=== PATIENT | female | born 1940 ===

== ENCOUNTER 2018-01-08 12:16 | Observation (INO) | payer OTHER ==
--- NOTE | 2018-01-08 13:48 | C.PDOC ---
History Of Present Illness 77 y/o female brought to ER by BLS for right hip pain which began after she fell and was not able to get up at home. Pt says she had to "drag herself to the door." She states, " something is broken because she feels something moving. " Time Seen by Provider: 01/08/18 13:01 Chief Complaint (Nursing): Lower Extremity Problem/Injury History Per: Patient History/Exam Limitations: no limitations Onset/Duration Of Symptoms: Hrs Current Symptoms Are (Timing): Still Present Severity: Moderate - Hip Description Of Injury: Fell Past Medical History Reviewed: Historical Data, Nursing Documentation, Vital Signs Vital Signs: Last Vital Signs Temp 98.4 F 01/08/18 18:00 Pulse 65 01/08/18 18:00 Resp 20 01/08/18 18:00 BP 145/82 01/08/18 18:00 Pulse Ox 97 01/08/18 18:00 - Medical History PMH: Anxiety, Arthritis, Asthma, HTN, Hypercholesterolemia, Osteoporosis, Rheumatoid Arthritis Denies: CVA Other Surgeries: Hx of surgeries - [facility] Procedures CLOSURE SKIN & SUBCUTANEOUS NEC (05/03/14) RESECTION OF APPENDIX, PERCUTANEOUS ENDOSCOPIC APPROACH (06/20/16) TETANUS TOXOID ADMINIST (05/03/14) Family History: States: No Known Family Hx - Social History Hx Tobacco Use: Yes Hx Alcohol Use: No Hx Substance Use: No - Immunization History Hx Tetanus Toxoid Vaccination: No Hx Influenza Vaccination: Yes Hx Pneumococcal Vaccination: No Review Of Systems Constitutional: Negative for: Fever, Chills Musculoskeletal: Positive for: Other (right hip pain) Neurological: Negative for: Weakness, Numbness Physical Exam - Physical Exam Appears: Non-toxic, Other (frail eldely lady screaming in pain) Skin: Warm, Dry Head: Atraumatic, Normacephalic Eye(s): bilateral: Normal Inspection Nose: Flaring Neck: No Midline Cervical Tenderness, Supple Chest: Symmetrical Cardiovascular: No Rhythm Irregular, No Murmur Respiratory: No Decreased Breath Sounds, No Accessory Muscle Use, No Rales, No Rhonchi, No Wheezing Gastrointestinal/Abdominal: Soft, No Tenderness Extremity: No Normal ROM (right hip), Tenderness, Other (slightly rotated external right lower extremity, mild abrasion in right groin area, decreased rom at right hip, lle from ) Pulses: Right Dorsalis Pedis: Decreased (+1 ) Neurological/Psych: Oriented x3, Normal Speech, Normal Cognition, Normal Motor, Normal Sensation ED Course And Treatment - Laboratory Results Result Diagrams: 01/08/18 13:44 01/08/18 13:44 O2 Sat by Pulse Oximetry: 97 (RA) Pulse Ox Interpretation: Normal Progress Note: Labs and UA ordered. Medical Decision Making Medical Decision Making: pt with hip/groin pain s/p fall; pelvic fx on xray, as well as pt has uti. unable to ambulate. discussed with pt's pmd, Dr Rojas, she doesn't admit here. Discussed with Dr Arlette Godwin, admitted to his service. Disposition Discussed With Dr.: Corey Godwin Doctor Will See Patient In The: Hospital - Disposition Disposition: HOSPITALIZED Disposition Time: 14:54 Condition: STABLE - Clinical Impression Clinical Impression: Pelvic ring fracture, UTI (urinary tract infection) - PA / WEB MARKETING ASSISTANT / Resident Statement MD/DO has reviewed & agrees with the documentation as recorded. - Scribe Statement The provider has reviewed the documentation as recorded by the Benjie Akers Provider Attestation All medical record entries made by the Benjie were at my direction and personally dictated by me. I have reviewed the chart and agree that the record accurately reflects my personal performance of the history, physical exam, medical decision making, and the department course for this patient. I have also personally directed, reviewed, and agree with the discharge instructions and disposition.
[2018-01-08 13:50] LABS: BASO # 0.1 K/uL (0.0-0.2); BASO % 0.5 % (0.0-2.0); EOS # 0.1 K/uL (0.0-0.7); EOS % 0.8 % (0.0-4.0); HEMOGLOBIN 13.3 g/dL (11.0-16.0); LYMPH % 13.2 % (20.0-40.0); MEAN CORPUSCULAR HEMOGLOBIN 28.9 pg (27.0-31.0); MEAN CORPUSCULAR HGB CONC 33.7 g/dL (33.0-37.0); MEAN PLATELET VOLUME 7.2 fL (7.2-11.7); MONO # 0.8 K/uL (0.0-0.8); MONO % 4.9 % (0.0-10.0); NEUT # 12.5 K/uL (1.8-7.0); NEUT % 80.6 % (50.0-75.0); RBC 4.62 Mil/uL (3.80-5.20); RED CELL DISTRIBUTION WIDTH 15.1 % (11.5-14.5)
[2018-01-08 13:52] LABS: MEAN CELL VOLUME 85.6 fL (81.0-99.0); WHITE BLOOD COUNT 15.5 K/uL (4.8-10.8)
[2018-01-08 14:03] LABS: ALBUMIN 4.1 g/dL (3.5-5.0); CALCIUM 9.5 mg/dl (8.6-10.4); GFR AFRICAN-AMERICAN > 60; GFR NON-AFRICAN AMERICAN > 60
[2018-01-08 14:04] LABS: ALT/SGPT 25 U/L (9-52); AST/SGOT 26 U/L (14-36); BLOOD UREA NITROGEN 15 mg/dL (7-17)
[2018-01-08 14:12] LABS: SQUAMOUS EPITHIAL 2 /hpf (0-5); URINE BACTERIA RARE (<OCC); URINE BILIRUBIN NEGATIVE (NEGATIVE); URINE BLOOD NEGATIVE (NEGATIVE); URINE CLARITY Hazy (Clear); URINE COLOR Yellow (YELLOW); URINE GLUCOSE (UA) NORMAL (Normal); URINE LEUKOCYTE ESTERASE 3+ Leu/uL (Negative); URINE PROTEIN NEGATIVE (NEGATIVE); URINE UROBILINOGEN NORMAL mg/dL (0.2-1.0)
--- NOTE | 2018-01-08 14:28 | RAD ---
PROCEDURE: Pelvis right hip HISTORY: fall, hip and groin pain COMPARISON: None TECHNIQUE: Standard protocol for this study/examination. FINDINGS: Pelvic ring fracture, right. Comminuted fracture of the pubis. The ischial component is poorly visualized. Degenerative changes both hips without evidence of subluxation, dislocation or protrusio. IMPRESSION: Acute right pelvic ring fracture.
[2018-01-08] MEDS ORDERED: Ciprofloxacin 400mg/200ml D5W 400 MG/200 ML BAG IVPB STA (14:32)
[2018-01-08] MEDS ORDERED: Ciprofloxacin 400mg/200ml D5W 400 MG/200 ML BAG IVPB ONE (15:52)
[2018-01-08] MEDS ORDERED: Sodium Chloride 0.9% 1,000 ML ONE (16:12)
[2018-01-08] MEDS ORDERED: Oxycodone/Acetaminophen 5/325 mg Tab PO PRN (16:16)
[2018-01-08] MEDS: Sodium Chloride 0.9% 1,000 ML IV SCH (16:17)
[2018-01-08] MEDS ORDERED: Sodium Chloride 0.9% 1,000 ML IV SCH (16:30)
[2018-01-08 18:01] VITALS: RESP 20
[2018-01-08] MEDS ORDERED: Albuterol-Ipratrop 3 mg / 0.5 (3 ml) UD INH PRN (18:10)
--- NOTE | 2018-01-08 18:51 | CP.PCM.HP ---
History of Present Illness - History of Present Illness History of Present Illness: PGY1 H+P for Dr. Corey Godwin Patient is a 77 year old female with a past medical history of depression, HTN, Rheumatoid Arthritis, COPD, anxiety, dyslipidemia, osteoporosis, gastritis, hx of migraines and hx of abnormal pap. Patient is presenting to the hospital with a chief complaint of right hip pain. The patient states she was sleeping in her bed when she got a phone call. When she attempted to get up from the bed, she got tangled in the sheets and fell to the ground on her hard wood floor. She reports landing on her hip. She was unable to stand up due to pain. "Something is broken because I feel it moving." She had to pull herself to the door and call her friend who called the ambulance. Patient denies any prodrome prior to the fall, lightheadedness, blurry vision, double vision, weakness or paralysis. She denies hitting her head or LOC. Patient reports feeling in good health with no complaints from her baseline prior to the fall. She states she currently has a headache but it is due to her hx of migraines. Patient reports frequent urination with a burning sensation for an unknown duration. Denies fever, chills , nausea, vomiting, chest pain, abdominal pain, blurry vision, double vision, shortness of breath, cough, numbness or tingling. PMD: Dr. Olivo PMH: depression, HTN, Rheumatoid Arthritis, COPD, anxiety, dyslipidemia, osteoporosis, gastritis, hx of migraines and hx of abnormal pap PSH: Appendectomy, unspecified vaginal surgery (hysterectomy?) Family: multiple family members with unknown, various types of cancer Social: Current half a pack smoker ("my whole life"), denies alcohol/illicit drug use Allergies: Penicillins Meds: Fosamax 70mg qWK Alprazolam 0.5mg PO BID Amlodipine 10mg PO daily Atorvastatin 10mg PO HS Bezesti 2 puffs INH BID Voltaren Gel Nexium Linzess 290mcg PO daily Losartan 100mg PO daily Oxycodone 30mg PO TID prn Prednisone 10mg daily Sertraline 50mg PO daily Temazepam 30mg PO HS prn Pharmacy - - confirmed on 01/08/18 Present on Admission - Present on Admission Any Indicators Present on Admission: No Review of Systems - Review of Systems All systems: reviewed and no additional remarkable complaints except (as per HPI ) Past Patient History - Past Medical History & Family History Past Medical History?: Yes - Past Social History Smoking Status: Current Some Days Smoker - CARDIAC Hx Hypercholesterolemia: Yes Hx Hypertension: Yes - PULMONARY Hx Asthma: Yes - ENDOCRINE/METABOLIC Hx Diabetes Mellitus Type 2: Yes - MUSCULOSKELETAL/RHEUMATOLOGICAL Hx Arthritis: Yes Hx Osteoporosis: Yes Hx Rheumatoid Arthritis: Yes - PSYCHIATRIC Hx Anxiety: Yes Hx Substance Use: No - SURGICAL HISTORY Hx Surgeries: Yes Other/Comment: Left arm. bilateral eye - ANESTHESIA Hx Anesthesia: Yes Hx Anesthesia Reactions: No Meds Allergies/Adverse Reactions: Allergies Allergy/AdvReac Type Severity Reaction Status Date / Time Penicillins Allergy REDNESS Verified 06/19/16 17:36 Physical Exam - Constitutional Appears: In Acute Distress (patient is unable to get comfortable in bed. moments of crying in pain.) - Head Exam Head Exam: ATRAUMATIC, NORMOCEPHALIC - Eye Exam Eye Exam: EOMI. absent: Scleral icterus - ENT Exam ENT Exam: Mucous Membranes Moist - Respiratory Exam Respiratory Exam: Clear to Auscultation Bilateral, NORMAL BREATHING PATTERN. absent: Accessory Muscle Use, Rales, Rhonchi, Wheezes, Respiratory Distress - Cardiovascular Exam Cardiovascular Exam: REGULAR RHYTHM, +S1, +S2. absent: JVD - GI/Abdominal Exam GI & Abdominal Exam: Normal Bowel Sounds, Soft. absent: Distended, Firm, Guarding, Hernia, Tenderness (tender to palpation in RLQ - but believed to be secondary to fx and not actual abdominal pain. soft and NO guarding) - Extremities Exam Extremities exam: Positive for: normal capillary refill, pedal pulses present. Negative for: calf tenderness, full ROM, pedal edema Additional comments: Patient is unwilling to move right LE. Right LE appears externally rotated compared to left LE. UE - hands show severe ulnar deviation of all digits b/l. - Back Exam Back exam: absent: CVA tenderness (L), CVA tenderness (R) - Neurological Exam Neurological exam: Alert, CN II-XII Intact, Oriented x3 - Psychiatric Exam Psychiatric exam: Agitated (in pain) - Skin Skin Exam: Dry, Normal Color (no ecchymosis seen), Warm Results - Vital Signs Recent Vital Signs: Last Vital Signs Temp 98.4 F 01/08/18 18:00 Pulse 65 01/08/18 18:00 Resp 20 01/08/18 18:00 BP 145/82 01/08/18 18:00 Pulse Ox 97 01/08/18 18:00 - Labs Result Diagrams: 01/08/18 13:44 01/08/18 13:44 Labs: Laboratory Results - last 24 hr 01/08/18 01/08/18 01/08/18 13:44 13:44 13:44 WBC 15.5 H D RBC 4.62 Hgb 13.3 Hct 39.6 MCV 85.6 D MCH 28.9 MCHC 33.7 RDW 15.1 H Plt Count 249 MPV 7.2 Neut % (Auto) 80.6 H Lymph % (Auto) 13.2 L [place] % (Auto) 4.9 Eos % (Auto) 0.8 Baso % (Auto) 0.5 Neut # (Auto) 12.5 H Lymph # (Auto) 2.0 Newton # (Auto) 0.8 Eos # (Auto) 0.1 Baso # (Auto) 0.1 PT 11.0 INR 1.0 APTT 21 Sodium Potassium Chloride Carbon Dioxide Anion Gap BUN Creatinine Est GFR ( Amer) Est GFR (Non-Af Amer) Random Glucose Calcium Total Bilirubin AST ALT Alkaline Phosphatase Total Creatine Kinase Total Protein Albumin Globulin Albumin/Globulin Ratio Urine Color Yellow Urine Clarity Hazy Urine pH 7.0 Ur Specific [place] 1.010 Urine Protein Negative Urine Glucose (UA) Normal Urine Ketones Negative Urine Blood Negative Urine Nitrate Positive H Urine Bilirubin Negative Urine Urobilinogen Normal Ur Leukocyte Esterase 3+ H Urine WBC (Auto) 110 H Urine RBC (Auto) 2 Ur Squamous Epith Cells 2 Urine Bacteria Rare 01/08/18 13:44 WBC RBC Hgb Hct MCV MCH MCHC RDW Plt Count MPV Neut % (Auto) Lymph % (Auto) [place] % (Auto) Eos % (Auto) Baso % (Auto) Neut # (Auto) Lymph # (Auto) [place] # (Auto) Eos # (Auto) Baso # (Auto) PT INR APTT Sodium 139 Potassium 4.4 Chloride 104 Carbon Dioxide 22 Anion Gap 17 BUN 15 Creatinine 0.6 L Est GFR ( Amer) > 60 Est GFR (Non-Af Amer) > 60 Random Glucose 92 Calcium 9.5 Total Bilirubin 1.1 AST 26 ALT 25 Alkaline Phosphatase 73 Total Creatine Kinase 120 Total Protein 8.4 H Albumin 4.1 Globulin 4.2 H Albumin/Globulin Ratio 1.0 Urine Color Urine Clarity Urine pH Ur Specific [place] Urine Protein Urine Glucose (UA) Urine Ketones Urine Blood Urine Nitrate Urine Bilirubin Urine Urobilinogen Ur Leukocyte Esterase Urine WBC (Auto) Urine RBC (Auto) Ur Squamous Epith Cells Urine Bacteria Assessment & Plan - Assessment and Plan (Free Text) Plan: Right Pelvic Ring Fx - s/p fall Ortho consult, Dr. Reece - f/u recs Hip/Pelvis X-ray - Acute right pelvic ring fracture Head CT w/o - patient refused. "There is nothing wrong with my head. I had a head CT a couple months ago. I'm fine." Will attempt to again tomorrow. Dilaudid 2mg IVP q8h prn (patient takes oxycodone 30mg PO TID @home for chronic pain 2/2 RA) Colace 100mg PO TID UTI WBC 15.5 (Neut % 80.6) UA 01/08 - Nitrate +, Leuk Marsha 3+ Urine Cx f/u Blood Cx f/u Cipro 400mg IVPB q12h (started on 01/08) Straight Cath q6h prn COPD Spiriva 2 puffs INH BID Duoneb 3mL INH q6h prn for SOB HTN Amlodipine 10mg PO daily Losartan 100mg PO daily Depression/Anxiety Alprazolam 0.5mg PO BID prn Zoloft 50mg PO daily HLD Crestor 5mg PO HS Chronic Constipation Colace 100mg PO TID Prune Juice 8oz with breakfast and dinner Rheumatoid Arthritis Prednisone 10mg daily Calcium Carbonate/Vit D 2 tab PO TID (total Cristian 1500 - Vit D 750 daily) Patient takes Oxycodone 30mg PO TID prn at home for pain - confirmed with pharmacy. On hold as patient is currently getting the hx of Migraines Temazepam 30g PO HS prn Prophylactic Care DVT - anticoag is contraindicated as we are unable to rule out acute brain bleed 2/2 patient's refusal of head CT. SCDs only for now GI - Protonix 40mg IVP q12h Case discussed with Dr. Corey Sarah Reji PGY1
[2018-01-08] MEDS: Ciprofloxacin 400mg/200ml D5W 400 MG/200 ML BAG IVPB SCH (22:18)
[2018-01-08] MEDS ORDERED: HYDROmorphone 0.5 mg/0.5 ml ISec IVP PRN (23:07)
[2018-01-09] MEDS: Sodium Chloride 0.9% 1,000 ML IV SCH ×2 (00:45→05:59)
[2018-01-09 06:26] LABS: BASO % 0.3 % (0.0-2.0); EOS # 0.1 K/uL (0.0-0.7); EOS % 1.1 % (0.0-4.0); HEMOGLOBIN 11.1 g/dL (11.0-16.0); LYMPH # 1.2 K/uL (1.0-4.3); LYMPH % 15.4 % (20.0-40.0); MEAN CELL VOLUME 86.3 fL (81.0-99.0); MEAN CORPUSCULAR HEMOGLOBIN 29.5 pg (27.0-31.0); MEAN CORPUSCULAR HGB CONC 34.2 g/dL (33.0-37.0); MONO # 0.6 K/uL (0.0-0.8); MONO % 7.8 % (0.0-10.0); NEUT # 5.7 K/uL (1.8-7.0); NEUT % 75.4 % (50.0-75.0); NRBC % 0.1 % (0.0-2.0); RBC 3.74 Mil/uL (3.80-5.20); WHITE BLOOD COUNT 7.6 K/uL (4.8-10.8)
[2018-01-09 06:37] LABS: ALB/GLOB RATIO 1.1 (1.0-2.1); ALBUMIN 3.3 g/dL (3.5-5.0); ALT/SGPT 21 U/L (9-52); AST/SGOT 20 U/L (14-36); BLOOD UREA NITROGEN 15 mg/dL (7-17); GFR AFRICAN-AMERICAN > 60; GFR NON-AFRICAN AMERICAN > 60; HDL CHOLESTEROL 69 mg/dL (30-70)
[2018-01-09 06:46] LABS: LDL CHOLESTEROL 106 mg/dL (0-129)
[2018-01-09] MEDS ORDERED: Tiotropium 18 mcg Cap For Inhalation INH SCH (08:00)
[2018-01-09] MEDS: Calcium-Vit D 250 mg-125 Units Tab UD PO SCH ×3 (09:58→17:48)
[2018-01-09] MEDS: Ciprofloxacin 400mg/200ml D5W 400 MG/200 ML BAG IVPB SCH ×2 (09:59→21:17)
[2018-01-09] MEDS ORDERED: POLYETHYLENE GLYCOL 3350 17 GM/Dose PACKET PO STA (11:05)
--- NOTE | 2018-01-09 12:06 | CT ---
PROCEDURE: CT HEAD WITHOUT CONTRAST. HISTORY: S/P fall from bed COMPARISON: 03/13/2016 TECHNIQUE: Axial computed tomography images were obtained through the head/brain without intravenous contrast. Radiation dose: Total exam DLP = 781.23 mGy-cm. This CT exam was performed using one or more of the following dose reduction techniques: Automated exposure control, adjustment of the mA and/or kV according to patient size, and/or use of iterative reconstruction technique. FINDINGS: HEMORRHAGE: No intracranial hemorrhage. BRAIN: No mass effect or edema. Left frontal parafalcine encephalomalacia, likely old infarct. Unchanged from prior. No evidence of acute infarct. VENTRICLES: Unremarkable. No hydrocephalus. CALVARIUM: Unremarkable. PARANASAL SINUSES: Minimal mucoperiosteal thickening in sphenoid sinus and posterior ethmoid sinus consistent with chronic sinusitis. MASTOID AIR CELLS: Unremarkable as visualized. No inflammatory changes. OTHER FINDINGS: None. IMPRESSION: No intracranial mass, hemorrhage or evidence of acute infarct. 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 Minimal chronic paranasal sinusitis.
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
[2018-01-09] MEDS: Enoxaparin 40 mg Syringe SC SCH (13:46)
[2018-01-09] MEDS: oxyCODONE 30 mg Immediate Release Tab PO PRN (20:23)
--- NOTE | 2018-01-09 23:04 | CON ---
DATE: 01/09/2018. CHIEF COMPLAINT: Right pubic rami fracture. HISTORY OF PRESENT ILLNESS: The patient is 77-year-old female with past medical history of depression, hypertension, rheumatoid arthritis, COPD, anxiety, dyslipidemia and osteoporosis. The patient presented to the hospital with a right hip pain. The patient reports she had a mechanical fall while she attempted to answer a phone, fell landing on to her right hip. The patient was brought into emergency room. Hip x-rays showed a right inferior and superior rami fracture. The patient currently reports pain. Denies pain in any other extremities or joint. Denies any lightheadedness. Denies any loss of consciousness. The patient is . PAST MEDICAL HISTORY: Depression, hypertension, rheumatoid arthritis, COPD, anxiety, dyslipidemia, osteoporosis, and gastritis. PAST SURGICAL HISTORY: Appendectomy and possible hysterectomy. ALLERGIES: PENICILLIN. MEDICATIONS: Per patient's chart. PHYSICAL EXAMINATION: MUSCULOSKELETAL: Examination of the patient's right pelvis, no swelling or ecchymosis. No hematoma noted. The patient has limited range of motion to the hip secondary to pain. She has negative log roll. Negative heel strike. Able to dorsiflex her ankle and plantar flex her ankle and extend her toe. Sensation is grossly intact and 2+ pedal pulses. IMAGING: X-rays of the patient's pelvis showing a minimally displaced superior inferior right pubic rami fracture. ASSESSMENT: This is 77-year-old female with mechanical fall and right hip superior and inferior pubic rami fracture. TREATMENT: I had a detailed discussion with the patient including the history, physical exam, and the nature of her injury. At this time, I am recommending nonoperative management. The patient will be weight bearing as tolerated, DVT prophylaxis and pain control. The patient will continue physical therapy and may follow up in my office as outpatient. Zo Reece MD
[2018-01-10 00:11] VITALS: TEMP 98
[2018-01-10 07:21] LABS: BASO % 0.5 % (0.0-2.0); EOS # 0.2 K/uL (0.0-0.7); HEMOGLOBIN 10.8 g/dL (11.0-16.0); LYMPH # 1.7 K/uL (1.0-4.3); LYMPH % 21.9 % (20.0-40.0); MEAN CELL VOLUME 87.2 fL (81.0-99.0); MEAN CORPUSCULAR HEMOGLOBIN 29.4 pg (27.0-31.0); MEAN CORPUSCULAR HGB CONC 33.7 g/dL (33.0-37.0); MEAN PLATELET VOLUME 7.4 fL (7.2-11.7); MONO # 0.6 K/uL (0.0-0.8); MONO % 7.7 % (0.0-10.0); NEUT # 5.2 K/uL (1.8-7.0); NEUT % 66.9 % (50.0-75.0); RBC 3.68 Mil/uL (3.80-5.20); RED CELL DISTRIBUTION WIDTH 14.7 % (11.5-14.5); WHITE BLOOD COUNT 7.7 K/uL (4.8-10.8)
[2018-01-10 07:35] LABS: ALB/GLOB RATIO 1.1 (1.0-2.1); ALBUMIN 3.3 g/dL (3.5-5.0); ALT/SGPT 19 U/L (9-52); AST/SGOT 16 U/L (14-36); BLOOD UREA NITROGEN 13 mg/dL (7-17); CALCIUM 8.6 mg/dl (8.6-10.4); GFR AFRICAN-AMERICAN > 60; GFR NON-AFRICAN AMERICAN > 60
[2018-01-10] MEDS: oxyCODONE 30 mg Immediate Release Tab PO PRN ×2 (09:44→19:52)
[2018-01-10] MEDS: Calcium-Vit D 250 mg-125 Units Tab UD PO SCH ×3 (09:47→17:44)
[2018-01-10] MEDS: Enoxaparin 40 mg Syringe SC SCH (09:49)
[2018-01-10] MEDS: Ciprofloxacin 400mg/200ml D5W 400 MG/200 ML BAG IVPB SCH (10:00)
[2018-01-10 14:29] VITALS: O2SAT 95
--- NOTE | 2018-01-10 15:55 | CARD ---
APPROVED REPORT EKG Measurement Heart [id number] <Conclusion> Sinus bradycardia Nonspecific ST and T wave abnormality Abnormal ECG
[2018-01-10 16:36] VITALS: BP 109/61; PULSE 69
--- NOTE | 2018-01-10 21:12 | CP.PCM.DIS ---
Provider - Provider Date of Admission: 01/08/18 14:56 Attending physician: Corey Godwin MD Consults: Ortho - Shanell Time Spent in preparation of Discharge (in minutes): 30 Hospital Course - Lab Results Lab Results: Micro Results 01/08/18 19:10 Blood Blood Culture - Preliminary NO GROWTH AFTER 48 HOURS 01/08/18 15:44 Urine,Clean Catch Urine Culture - Final Escherichia Coli 01/08/18 19:20 Blood Blood Culture - Preliminary NO GROWTH AFTER 24 HOURS Most Recent Lab Values WBC 7.7 K/uL (4.8-10.8) 01/10/18 07:10 RBC 3.68 Mil/uL (3.80-5.20) L 01/10/18 07:10 Hgb 10.8 g/dL (11.0-16.0) L 01/10/18 07:10 Hct 32.1 % (34.0-47.0) L 01/10/18 07:10 MCV 87.2 fL (81.0-99.0) 01/10/18 07:10 MCH 29.4 pg (27.0-31.0) 01/10/18 07:10 MCHC 33.7 g/dL (33.0-37.0) 01/10/18 07:10 RDW 14.7 % (11.5-14.5) H 01/10/18 07:10 Plt Count 168 K/uL (130-400) 01/10/18 07:10 MPV 7.4 fL (7.2-11.7) 01/10/18 07:10 Neut % (Auto) 66.9 % (50.0-75.0) 01/10/18 07:10 Lymph % (Auto) 21.9 % (20.0-40.0) 01/10/18 07:10 Gonzales % (Auto) 7.7 % (0.0-10.0) 01/10/18 07:10 Eos % (Auto) 3.0 % (0.0-4.0) 01/10/18 07:10 Baso % (Auto) 0.5 % (0.0-2.0) 01/10/18 07:10 Neut # (Auto) 5.2 K/uL (1.8-7.0) 01/10/18 07:10 Lymph # (Auto) 1.7 K/uL (1.0-4.3) 01/10/18 07:10 Gonzales # (Auto) 0.6 K/uL (0.0-0.8) 01/10/18 07:10 Eos # (Auto) 0.2 K/uL (0.0-0.7) 01/10/18 07:10 Baso # (Auto) 0.0 K/uL (0.0-0.2) 01/10/18 07:10 PT 11.0 SECONDS (9.7-12.2) 01/08/18 13:44 INR 1.0 01/08/18 13:44 APTT 21 SECONDS (21-34) 01/08/18 13:44 Sodium 139 mmol/L (132-148) 01/10/18 07:10 Potassium 4.2 mmol/L (3.6-5.2) 01/10/18 07:10 Chloride 104 mmol/L (98-107) 01/10/18 07:10 Carbon Dioxide 26 mmol/L (22-30) 01/10/18 07:10 Anion Gap 12 (10-20) 01/10/18 07:10 BUN 13 mg/dL (7-17) 01/10/18 07:10 Creatinine 0.6 mg/dL (0.7-1.2) L 01/10/18 07:10 Est GFR ( Amer) > 60 01/10/18 07:10 Est GFR (Non-Af Amer) > 60 01/10/18 07:10 Random Glucose 110 mg/dL (65-105) H 01/10/18 07:10 Calcium 8.6 mg/dl (8.6-10.4) 01/10/18 07:10 Phosphorus 2.9 mg/dL (2.5-4.5) 01/10/18 07:10 Magnesium 1.8 mg/dL (1.6-2.3) 01/10/18 07:10 Total Bilirubin 0.6 mg/dL (0.2-1.3) 01/10/18 07:10 AST 16 U/L (14-36) 01/10/18 07:10 ALT 19 U/L (9-52) 01/10/18 07:10 Alkaline Phosphatase 53 U/L (38-126) 01/10/18 07:10 Total Creatine Kinase 120 U/L (30-135) 01/08/18 13:44 Total Protein 6.2 g/dL (6.3-8.3) L 01/10/18 07:10 Albumin 3.3 g/dL (3.5-5.0) L 01/10/18 07:10 Globulin 2.9 gm/dL (2.2-3.9) 01/10/18 07:10 Albumin/Globulin Ratio 1.1 (1.0-2.1) 01/10/18 07:10 Triglycerides 82 mg/dL (0-149) 01/09/18 06:16 Cholesterol 203 mg/dL (0-199) H 01/09/18 06:16 LDL Cholesterol Direct 106 mg/dL (0-129) 01/09/18 06:16 HDL Cholesterol 69 mg/dL (30-70) 01/09/18 06:16 Urine Color Yellow (YELLOW) 01/08/18 13:44 Urine Clarity Hazy (Clear) 01/08/18 13:44 Urine pH 7.0 (5.0-8.0) 01/08/18 13:44 Ur Specific Gautier 1.010 (1.003-1.030) 01/08/18 13:44 Urine Protein Negative mg/dL (NEGATIVE) 01/08/18 13:44 Urine Glucose (UA) Normal mg/dL (Normal) 01/08/18 13:44 Urine Ketones Negative mg/dL (NEGATIVE) 01/08/18 13:44 Urine Blood Negative (NEGATIVE) 01/08/18 13:44 Urine Nitrate Positive (NEGATIVE) H 01/08/18 13:44 Urine Bilirubin Negative (NEGATIVE) 01/08/18 13:44 Urine Urobilinogen Normal mg/dL (0.2-1.0) 01/08/18 13:44 Ur Leukocyte Esterase 3+ Arturo/uL (Negative) H 01/08/18 13:44 Urine WBC (Auto) 110 /hpf (0-5) H 01/08/18 13:44 Urine RBC (Auto) 2 /hpf (0-3) 01/08/18 13:44 Ur Squamous Epith Cells 2 /hpf (0-5) 01/08/18 13:44 Urine Bacteria Rare (<OCC) 01/08/18 13:44 Discharge Exam - Head Exam Head Exam: ATRAUMATIC, NORMOCEPHALIC Discharge Plan - Discharge Medications Prescriptions: Ciprofloxacin IV [Cipro] 400 mg IVPB Q12H 5 Days vial Methotrexate 15 mg PO QWK 999 Days tab - Follow Up Plan Condition: STABLE Disposition: REHAB FACILITY/REHAB UNIT Instructions: Ciprofloxacin (Systemic), Pelvic Fracture (DC), Methotrexate, Urinary Tract Infection in Women (DC) Additional Instructions: 1.) Patient is to be transferred to [facility] for rehab, per Dr. Corey Godwin. 2.) Please continue all of patient's home medications as directed. - Dr. Olivo - Pharmacy - 3.) Nystatin Powder is to be applied to Left breast fungal rash BID for total of 14 days (last day 01/22) 4.) Ciprofloxacin 400mg IVPB q12h is to be continued to complete total of 7 days (last scheduled dose is 10pm on 01/15) 5.) Upon discharge from [facility], patient is to follow up with Dr. Reece ( Orthopedics). 6.) Please take care and heal fast. Referrals: Zo Reece MD [Staff Provider] -
== END 2018-01-10 20:40 ==
LOC: C.ER 12:16 → C.9E 14:56 → C.3T 16:21
PROVIDERS: ADMIT Family Medicine; ATTEND Family Medicine
DX: S32.810A Multiple fractures of pelvis with stable disruption of pelvic ring, initial encounter for closed fracture (principal); E11.9 Type 2 diabetes mellitus without complications; E78.00 Pure hypercholesterolemia, unspecified; F17.200 Nicotine dependence, unspecified, uncomplicated; I10 Essential (primary) hypertension; J44.9 Chronic obstructive pulmonary disease, unspecified; M06.9 Rheumatoid arthritis, unspecified; M81.0 Age-related osteoporosis without current pathological fracture; N39.0 Urinary tract infection, site not specified; W01.0XXA Fall on same level from slipping, tripping and stumbling without subsequent striking against object, initial encounter; D50.9 Iron deficiency anemia, unspecified; F32.9 Major depressive disorder, single episode, unspecified; F41.9 Anxiety disorder, unspecified
CPT/HCPCS: 36415; 70450; 73502; 80053; 80061; 81001; 82550; 83735; 84100; 85025; 85610; 85730; 87040; 87086; 87181; 93005; 94640; 96365; 96366; 96374; 97162; 97530; 99285; C9113; G0378; G8978; G8979; J0744; J1170; J1650; J2270; J2405; J7040